=== PATIENT | female | born 1945 | race Caucasian/White ===

== ENCOUNTER 2017-05-02 10:01 | Outpatient (CLI) | payer MEDICARE, BC ==
--- NOTE | 2017-05-02 14:57 | MRI ---
MRI RIGHT SHOULDER WITHOUT CONTRAST: HISTORY: M25.511, right shoulder pain. COMPARISON: None. FINDINGS: Biceps tendon: There is moderate extraarticular biceps tenosynovitis. There is interstitial tear at the level of the bicipital groove with moderate intraarticular tendinosis. Glenoid labrum: There is degeneration of the superior labrum with fraying and abnormal fluid signal within the labral substance. Rotator cuff: There is extensive high-grade healing or healed partial tear of the supraspinatus tend on and probably nearly all the fibers. There is extensive scar in situ. Very few normal fibers are seen beyond the rotator cable. This is felt to be likely reflective of a healed near full-thickness tear in the tendon approximately a centimeter from the foot plate. There is moderate tendinosis of t he infraspinatus tendon. Muscles: The muscle bulk is maintained. Bones: Moderate degenerative disease, intraventricular joint. Type II acromion. Soft tissues: Moderate subacromial/subdeltoid bursal occlusion. The rotator interval appears unrema rkable without significant synovitis. IMPRESSION: 1. Moderate extraarticular biceps tenosynovitis with interstitial tearing with the proximal most fib ers of the intertrabecular groove. 2. Extensive fraying of the superior labrum without normal fluid within the substance of the labrum suggesting chronic tearing. 3. Evidence of a scarred near full-thickness tear of the supraspinatus tendon entire width approxima tely 1 cm from the footplate with bridging scarring tissue without retraction of the myotendinous anibal ction. The scar bridges extensively tendinotic fibers of the supraspinatus tendon. 4. Moderate subacromial/subdeltoid bursal effusion. 5. Moderate degenerative disease of acromioclavicular joint. 6. No significant atrophy of the muscles. POS: [facility]
== END 2017-05-02 10:02 | disposition home or self-care (01) ==
LOC: TBSIIMAG 10:01
PROVIDERS: ATTEND Orthopaedic Surgery
DX: M25.511 Pain in right shoulder (principal); M75.21 Bicipital tendinitis, right shoulder; M75.101 Unspecified rotator cuff tear or rupture of right shoulder, not specified as traumatic; M25.411 Effusion, right shoulder; M19.011 Primary osteoarthritis, right shoulder

== ENCOUNTER 2017-06-02 08:58 | Outpatient (CLI) | payer MEDICARE, BC ==
[2017-06-02 10:10] LABS: #Eosinphils 0.1 thou/uL (0.0-0.7); #Lymphocytes 1.6 thou/uL (1.20-3.40); #Monocytes 0.4 thou/uL (0.11-0.59); #Neutrophils 3.8 thou/uL (1.40-6.50); %Basophils 0.4 % (0.0-1.0); %Eosinophils 1.5 % (0.0-10.0); %Lymphocytes 26.4 % (21.0-51.0); Mean Platelet Volume 7.7 fL (7.4-10.4); Red Blood Cell (RBC) Count 4.62 mill/uL (4.20-5.40); White Blood Cell (WBC) Count 5.9 thou/uL (4.8-10.8)
[2017-06-02 10:35] LABS: Anion Gap 12 mmol/L (10-20); BUN (Urea Nitrogen) 11 mg/dL (9.8-20.1); Calc. Creatinine Clearance 0 mL/min (70-130); Calcium 9.8 mg/dL (7.8-10.44); Carbon Dioxide 29 mmol/L (23-31); Chloride 105 mmol/L (98-107); Estimated GFR-MDRD 76
--- NOTE | 2017-06-02 15:53 | EKG ---
Test Reason : Blood Pressure : / mmHG Vent. Rate : 067 BPM Atrial Rate : 067 BPM P-R Int : 170 ms QRS Dur : 082 ms QT Int : 390 ms P-R-T Axes : 050 051 047 degrees QTc Int : 412 ms Normal sinus rhythm Normal ECG Confirmed by SHAINA ESPINOZA ([id number]) on 06/02/2017 3:53:02 PM Referred By: IERO Confirmed By:SHAINA ESPINOZA
== END 2017-06-02 08:59 | disposition home or self-care (01) ==
LOC: LABBT 08:58
PROVIDERS: ATTEND Orthopaedic Surgery
DX: Z01.818 Encounter for other preprocedural examination (principal); M75.101 Unspecified rotator cuff tear or rupture of right shoulder, not specified as traumatic
CPT/HCPCS: 80048; 85025; 93005; 93010

== ENCOUNTER 2017-06-08 05:49 | Day surgery (SDC) | payer MEDICARE, BC ==
[2017-06-02 09:18] VITALS: BMI 29.0
[2017-06-08] MEDS ORDERED: CEFAZOLIN/Water 2 GM/20 ML SYRINGE ONE (06:06)
[2017-06-08] MEDS ORDERED: Fentanyl 100 MCG/2 ML VIAL ONE (06:30)
[2017-06-08] MEDS ORDERED: Ropivacaine 0.2% HCl/PF 20 ML ONE (06:30)
[2017-06-08] MEDS ORDERED: Midazolam HCl 2 mg/2 ml Vial ONE (06:30)
[2017-06-08] MEDS ORDERED: Bupivacaine/Epinephrine 0.25% 30 ML VIAL ONE (06:42)
[2017-06-08] MEDS ORDERED: Ondansetron HCl/PF 4 MG/2 ML Vial IVP PRN (07:05)
[2017-06-08] MEDS ORDERED: traMADol HCl 50 MG TAB PO PRN ×2 (07:05)
[2017-06-08] MEDS ORDERED: Promethazine HCl 25 MG/ML VIAL IM PRN (07:05)
[2017-06-08] MEDS ORDERED: Ketorolac Tromethamine 30 MG/ML VIAL IVP PRN (07:05)
[2017-06-08] MEDS ORDERED: Zolpidem Tartrate 5 MG TAB PO PRN (07:05)
[2017-06-08] MEDS ORDERED: Ropivacaine 0.2% 550 ML 550 ML NERVE BLCK SCH (07:05)
[2017-06-08] MEDS ORDERED: HYDROcodone/Acetaminophen 5/325 mg Tablet PO PRN ×2 (07:05)
[2017-06-08] MEDS ORDERED: Fentanyl 100 MCG/2 ML VIAL IV PRN (07:07)
[2017-06-08] MEDS ORDERED: Promethazine HCl 25 MG/ML VIAL ONE (09:49)
--- NOTE | 2017-06-08 10:50 | OP ---
DATE OF PROCEDURE: 06/08/2017 PREOPERATIVE DIAGNOSIS: Right shoulder rotator cuff tear and labral tear as well as biceps tendon in stability and tearing. POSTOPERATIVE DIAGNOSES: 1. Partial tear, supraspinatus tendon with no evidence of full thickness tear. 2. SLAP tear, degenerative in nature, as well as a tear of the superior aspect of the subscapularis, both leading to instability of the biceps. 3. 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 PROCEDURES: 1. Right shoulder arthroscopy with debridement and shaving of partial cuff tear, degenerative labral tear. 2. Open biceps tenodesis. SURGEON: Flo Bhatia M.D. STEWARD/STEWARDESS SECOND CLASS: Armando Eastman PA-C. BLOOD LOSS: Minimal. COMPLICATIONS: None. ANESTHESIA: She had general anesthetic. She also has a preoperative block. We did use an Arthrex 7 x 23 BioComposite Bio-Tenodesis screw. DISPOSITION: She did go to recovery room in stable condition. INDICATIONS: A 72-year-old female comes in complaining of right shoulder pain and discomfort that hearn s been not amenable to nonoperative treatment. At this time, she opted to have surgery. DESCRIPTION OF PROCEDURE: After all appropriate consent forms were explained and signed, she was lee ann en to the operating room and at this time was given a general anesthetic. Once anesthesia was approp riate, she was rolled into the left lateral decubitus position with all bony prominences well-padded. An axillary roll was placed underneath the left axilla and beanbag was inflated to hold in this pos ition. The arm was then suspended with 10 pounds in standard arthroscopic fashion after taking it th rough a full range of motion. At this time, the right shoulder and upper extremity are prepped and d raped in the standard surgical fashion. Bony anatomic landmarks were drawn out and subacromial space was infiltrated with Marcaine with epinephrine. Posterior portal was established and the scope was placed into the shoulder joint. Anterior working portal was then made using a needle localization te chnique and diagnostic arthroscopy commenced. Medially, we noted a tear of the superior aspect of tyson bscapularis leading to anterior biceps instability and irritation of the biceps tendon itself. There was significant amount of synovitis noted in the interval. There were no loose bodies in the axilla ry pouch. There was some grade 2 and 3 chondromalacia of both the central glenoid as well as the ant erior portion of the humeral head. The superior labrum was found to be completely degenerative and u nstable, also laying biceps instability. At this time, the rotator cuff was evaluated and supraspina tus portion of the cuff had a partial tear and the shaver was introduced and used to debride both par tial tear of the rotator cuff as well as the labrum circumferentially and the surface energy was then used to coagulate any brisk venous bleeding after the synovitic tissue had been resected. At this t garth, we then used a needle through which a stitch was placed into the biceps tendon and cut off the b iceps off its superior labral attachment using the arthroscopic scissors. We then debrided this area superiorly. At this time, the scope was removed and replaced into the subacromial space. The bursa l tissue was removed off the underlying cuff to expose the rotator cuff, it was evident where the par tial tear was noted, but no full thickness tear was noted. No significant bony decompression was per formed and the CA ligament was not taken down secondary to the underlying arthritic change. At this time, we removed the scope and drained the shoulder. We then used a 15 blade to make incision. Next , we replaced our stitch down through skin only. Bovie was used to coagulate any brisk venous bleedi ng. We sharply dissected through the deltoid fascia and then used finger to dissect in line with the deltoid fibers to get down to the underlying transverse humeral ligament. This was opened up and th e biceps tendon pulled out into the wound. All brisk venous bleeding was coagulated. Any adhesions in the transverse humeral ligament were then removed at this time to expose the tendon. We then sutu red and then cutoff the intraarticular portion. We then placed the guidepin and reamed over this wit h #7 and then placed a 7 x 23 BioComposite tenodesis screw in standard fashion. Stitches were tied o roxy top of this and then cut. We then thoroughly irrigated and dried. We let our deltoid close upon itself and we ran a Vicryl to close our deltoid fascia, 2-0 Vicryl and nylon stitches were then used to close all our incisions. At this time, bulky sterile dressing was applied. The patient was awak ened. She was taken to the recovery room in stable condition. All counts were correct at the end of the case. She received preoperative IV antibiotics.
[2017-06-08] MEDS ORDERED: Ondansetron HCl/PF 4 MG/2 ML Vial ONE (16:30)
[2017-06-08] MEDS ORDERED: Glycopyrrolate 0.2 MG/ML 5 ML SYRINGE ONE (16:30)
[2017-06-08] MEDS ORDERED: Propofol 200 MG/20 ML VIAL ONE (16:30)
[2017-06-08] MEDS ORDERED: Dexamethasone 20 MG/5 ML VIAL ONE (16:30)
[2017-06-08] MEDS ORDERED: ePHEDrine/0.9% NaCl/PF SYRINGE 50 mg/10 ml ONE (16:30)
[2017-06-08] MEDS ORDERED: Ropivacaine 0.5% HCl/PF (150 MG/30 ML VIAL) ONE (16:47)
== END 2017-06-08 12:05 | disposition home or self-care (01) ==
LOC: SDC 05:49
PROVIDERS: ATTEND Orthopaedic Surgery
PROC: 0RBJ4ZZ Excision of Right Shoulder Joint, Percutaneous Endoscopic Approach (ICD-10-PCS; principal; 2017-06-08)
PROC: 0LS30ZZ Reposition Right Upper Arm Tendon, Open Approach (ICD-10-PCS; 2017-06-08)
PROC: 0RHJ04Z Insertion of Internal Fixation Device into Right Shoulder Joint, Open Approach (ICD-10-PCS; 2017-06-08)
DX: M75.111 Incomplete rotator cuff tear or rupture of right shoulder, not specified as traumatic (principal); S43.431A Superior glenoid labrum lesion of right shoulder, initial encounter; M94.211 Chondromalacia, right shoulder; E78.5 Hyperlipidemia, unspecified; K21.9 Gastro-esophageal reflux disease without esophagitis; I34.0 Nonrheumatic mitral (valve) insufficiency; I35.0 Nonrheumatic aortic (valve) stenosis; Z86.010 Personal history of colon polyps; Z79.899 Other long term (current) drug therapy; Z88.8 Allergy status to other drugs, medicaments and biological substances; Z98.42 Cataract extraction status, left eye; Z98.41 Cataract extraction status, right eye; Z96.1 Presence of intraocular lens; Z98.51 Tubal ligation status; Z98.890 Other specified postprocedural states
CPT/HCPCS: 23430; 29823; 96374; A4306; C1713; J1100; J2250; J2405; J2550; J2704; J2795; J3010

== ENCOUNTER 2018-04-24 13:09 | Outpatient (CLI) | payer MEDICARE, BC | END 2018-04-24 13:10 | disposition home or self-care (01) | LOC: BICMAMMO 13:09 | PROVIDERS: ATTEND Family Medicine | DX: Z12.31 Encounter for screening mammogram for malignant neoplasm of breast (principal) | CPT/HCPCS: 77063; 77067 ==

== ENCOUNTER 2018-08-11 18:18 | Emergency (ER) | payer MEDICARE, BC ==
[~2018-08-11 18:18] MED LIST: ISOVUE-370 76%-LOCM 1 ML ONE
[2018-08-11 19:45] LABS: #Basophils 0.1 thou/uL (0.0-0.2); #Eosinphils 0.1 thou/uL (0.0-0.7); #Lymphocytes 1.8 thou/uL (1.20-3.40); #Monocytes 0.4 thou/uL (0.11-0.59); #Neutrophils 3.7 thou/uL (1.40-6.50); %Eosinophils 2.2 % (0.0-10.0); %Lymphocytes 28.7 % (21.0-51.0); %Neutrophils 61.1 % (42.0-75.0); Hemoglobin 14.2 g/dL (12.0-16.0); Mean Corpuscular HGB CONC 33.1 g/dL (32.0-36.0); Mean Corpuscular Hemoglobin 31.8 pg (27.0-31.0); Mean Platelet Volume 8.4 fL (7.4-10.4); Platelet Count 171 thou/uL (130-400); RBC Distribution Width 11.8 % (11.5-14.5); Red Blood Cell (RBC) Count 4.48 mill/uL (4.20-5.40); White Blood Cell (WBC) Count 6.1 thou/uL (4.8-10.8)
[2018-08-11 20:10] LABS: ALT (SGPT) 16 U/L (8-55); AST (SGOT) 20 U/L (5-34); Albumin 4.3 g/dL (3.4-4.8); Alkaline Phosphatase 94 U/L (40-150); Anion Gap 13 mmol/L (10-20); BUN (Urea Nitrogen) 9 mg/dL (9.8-20.1); Bilirubin, Total 1.1 mg/dL (0.2-1.2); CK (CPK) 175 U/L (29-168); Calc. Creatinine Clearance 0 mL/min (70-130); Calcium 9.4 mg/dL (7.8-10.44); Carbon Dioxide 27 mmol/L (23-31); Chloride 105 mmol/L (98-107); Estimated GFR-MDRD 61; Globulin 2.5 g/dL (2.4-3.5); Glucose 202 mg/dL (83-110); Potassium 4.3 mmol/L (3.5-5.1); Protein, Total 6.8 g/dL (6.0-8.3); Sodium 141 mmol/L (136-145)
[2018-08-11] MEDS ORDERED: Clindamycin/D5W 900 mg/50 ml Premix Bag ONE (21:19)
--- NOTE | 2018-08-11 22:36 | CT ---
CONTRAST ENHANCED FACE CT 08/11/18 HISTORY: Patient with right external auditory canal and ear infection. Contrast enhanced CT of the face is obtained. Mild right maxillary sinus mucosal thickening seen. The frontal and ethmoid sinuses are well aerated. Mild sphenoid sinus mucosal thickening seen. There is some soft tissue enhancement involving the right external auditory canal and right external ear. This may represent a focal area of cellulitis. No definite evidence of abscess seen. the right m astoid air cells and middle ear are unremarkable. IMPRESSION: No CT evidence of right external auditory canal and external ear abscess. Malignancy cannot be exclud ed. Correlate with clinical exam. POS: [facility]
[2018-08-11 22:54] LABS: Bilirubin Negative (Negative); Blood, Urine Negative (Negative); Clarity CLEAR (Clear); Glucose, Urine (Dipstick) Negative (Negative); Leukocyte Negative (Negative); Nitrite Negative (Negative); Protein, Urine (Dipstick) Negative (Neg-Trace)
[2018-08-11 22:57] LABS: Specific Gravity, Urine Greater than 1.060 (1.002-1.036)
== END 2018-08-11 23:07 | disposition home or self-care (01) ==
LOC: ERS 18:18
DX: A46 Erysipelas (principal); E78.5 Hyperlipidemia, unspecified; Z79.899 Other long term (current) drug therapy
CPT/HCPCS: 36415; 70487; 80053; 81003; 82550; 83605; 85025; 87040; 96365; J3490; Q9966

== ENCOUNTER 2019-04-26 08:46 | Outpatient (CLI) | payer MEDICARE, BC ==
--- NOTE | 2019-04-26 10:05 | MMO ---
Bilateral MAMMO Bilat Screen [facility]. CLINICAL HISTORY: Patient is 74 years old and is seen for screening. The patient has no family history of breast cancer. The patient has no personal history of cancer. VIEWS: The views performed were: bilateral craniocaudal with tomosynthesis and bilateral mediolateral oblique with tomosynthesis. FILMS COMPARED: The present examination has been compared to prior imaging studies performed at [facility] on 05/23/2014, 06/11/2015, 06/17/2016 and 04/24/2018. This study has been interpreted with the assistance of computer-aided detection. MAMMOGRAM FINDINGS: There are scattered fibroglandular densities. There are stable benign appearing calcifications seen in both breasts. There are no suspicious masses, suspicious calcifications, or new areas of architectural distortion. IMPRESSION: THERE IS NO MAMMOGRAPHIC EVIDENCE OF MALIGNANCY. A ROUTINE FOLLOW-UP MAMMOGRAM IN 1 YEAR IS RECOMMENDED. THE RESULTS OF THIS EXAM WERE SENT TO THE PATIENT. ACR BI-RADS Category 2 - Benign finding MAMMOGRAPHY NOTE: 1. A negative mammogram report should not delay a biopsy if a dominant of clinically suspicious mass is present. 2. Approximately 10% to 15% of breast cancers are not detected by mammography. 3. Adenosis and dense breasts may obscure an underlying neoplasm. Reported by: OBINNA TERRAZAS MD Electonically Signed: [id number]
== END 2019-04-26 08:47 | disposition home or self-care (01) ==
LOC: BICMAMMO 08:46
PROVIDERS: ATTEND Family Medicine
DX: Z12.31 Encounter for screening mammogram for malignant neoplasm of breast (principal)
CPT/HCPCS: 77063; 77067

== ENCOUNTER 2020-05-30 12:53 | Outpatient (CLI) | payer MEDICARE, BC ==
--- NOTE | 2020-05-30 13:26 | MMO ---
Bilateral MAMMO Bilat Screen [facility]. CLINICAL HISTORY: Patient is 75 years old and is seen for screening. The patient has no family history of breast cancer. The patient has no personal history of cancer. VIEWS: The views performed were: bilateral craniocaudal with tomosynthesis and bilateral mediolateral oblique with tomosynthesis. FILMS COMPARED: The present examination has been compared to prior imaging studies performed at [facility] on 06/11/2015, 06/17/2016, 04/24/2018 and 04/26/2019. This study has been interpreted with the assistance of computer-aided detection. MAMMOGRAM FINDINGS: There are scattered fibroglandular densities. There are stable benign appearing calcifications seen in both breasts. There are also vascular calcifications. There are no suspicious masses, suspicious calcifications, or new areas of architectural distortion. IMPRESSION: THERE IS NO MAMMOGRAPHIC EVIDENCE OF MALIGNANCY. A ROUTINE FOLLOW-UP MAMMOGRAM IN 1 YEAR IS RECOMMENDED. THE RESULTS OF THIS EXAM WERE SENT TO THE PATIENT. ACR BI-RADS Category 2 - Benign finding MAMMOGRAPHY NOTE: 1. A negative mammogram report should not delay a biopsy if a dominant of clinically suspicious mass is present. 2. Approximately 10% to 15% of breast cancers are not detected by mammography. 3. Adenosis and dense breasts may obscure an underlying neoplasm. Reported by: SOCO GUERRIER MD Electonically Signed: [id number]
== END 2020-05-30 12:54 | disposition home or self-care (01) ==
LOC: BICMAMMO 12:53
PROVIDERS: ATTEND Family Medicine
DX: Z12.31 Encounter for screening mammogram for malignant neoplasm of breast (principal)
CPT/HCPCS: 77063; 77067

== ENCOUNTER 2021-03-12 09:31 | Outpatient (CLI) | payer MEDICARE, BC | END 2021-03-12 09:32 | disposition home or self-care (01) | LOC: TBSIIMAG 09:31 | PROVIDERS: ATTEND Orthopaedic Surgery | DX: M48.061 Spinal stenosis, lumbar region without neurogenic claudication (principal); M47.816 Spondylosis without myelopathy or radiculopathy, lumbar region | CPT/HCPCS: 72148 ==

== ENCOUNTER 2021-06-18 10:39 | Outpatient (CLI) | payer MEDICARE, BC | END 2021-06-18 10:40 | disposition home or self-care (01) | LOC: BICMAMMO 10:39 | PROVIDERS: ATTEND Family Medicine | DX: Z12.31 Encounter for screening mammogram for malignant neoplasm of breast (principal) | CPT/HCPCS: 77063; 77067 ==

== ENCOUNTER 2022-07-02 12:37 | Outpatient (CLI) | payer MEDICARE, BC | END 2022-07-02 12:38 | disposition home or self-care (01) | LOC: BICMAMMO 12:37 | PROVIDERS: ATTEND Family Medicine | DX: Z12.31 Encounter for screening mammogram for malignant neoplasm of breast (principal) | CPT/HCPCS: 77063; 77067 ==

== ENCOUNTER 2022-09-27 10:16 | Outpatient (CLI) | payer MEDICARE, BC | END 2022-09-27 10:17 | disposition home or self-care (01) | LOC: TBSIIMAG 10:16 | PROVIDERS: ATTEND Orthopaedic Surgery Hand Surgery | DX: M48.02 Spinal stenosis, cervical region (principal); M47.813 Spondylosis without myelopathy or radiculopathy, cervicothoracic region | CPT/HCPCS: 72141 ==

== ENCOUNTER 2023-02-02 15:17 | Outpatient (CLI) | payer MEDICARE, BC | END 2023-02-02 15:18 | disposition home or self-care (01) | LOC: BICULT 15:17 | PROVIDERS: ATTEND Advanced Practice Midwife | DX: N95.0 Postmenopausal bleeding (principal) | CPT/HCPCS: 76856 ==

== ENCOUNTER 2023-07-27 11:10 | Outpatient (CLI) | payer MEDICARE, BC | END 2023-07-27 11:11 | disposition home or self-care (01) | LOC: BICMAMMO 11:10 | PROVIDERS: ATTEND Family Medicine | DX: Z12.31 Encounter for screening mammogram for malignant neoplasm of breast (principal) | CPT/HCPCS: 77063; 77067 ==

== ENCOUNTER 2023-08-23 07:58 | Day surgery (SDC) | payer MEDICARE, BC ==
[2023-08-18 11:09] VITALS: BMI 30.2
[2023-08-23] MEDS ORDERED: fentaNYL 50 mcg/mL 1 mL Vial ONE (09:09)
[2023-08-23] MEDS ORDERED: PROPOFOL 20 ML ONE (09:09)
[2023-08-23] MEDS ORDERED: Bupivacaine PF 0.5% 30 ML VIAL ONE (09:18)
[2023-08-23] MEDS ORDERED: Bacitracin Zinc Ointment 30 gm TUBE ONE (09:18)
[2023-08-23] MEDS ORDERED: Sodium Chloride 0.9% 100 ML ONE (09:59)
[2023-08-23] MEDS ORDERED: CEFAZOLIN 2 GM VIAL ONE (09:59)
[2023-08-23] MEDS ORDERED: Dexamethasone 4 mg/ml Vial ONE (10:16)
== END 2023-08-23 11:46 | disposition home or self-care (01) ==
LOC: SDC 07:58
PROVIDERS: ATTEND Orthopaedic Surgery Hand Surgery
PROC: 01N50ZZ Release Median Nerve, Open Approach (ICD-10-PCS; principal; 2023-08-23)
DX: G56.01 Carpal tunnel syndrome, right upper limb (principal); Z88.8 Allergy status to other drugs, medicaments and biological substances
CPT/HCPCS: 64721; A6223; J0665; J1100; J2704; J3010; J3490

== ENCOUNTER 2023-11-19 10:34 | Inpatient (IN) | payer MEDICARE, BC ==
[2023-11-19] MEDS ORDERED: Ketorolac Tromethamine 30 MG (1 mL) VIAL ONE (11:54)
[2023-11-19 14:12] LABS: #Basophils 0.03 10x3/uL (0.0-0.2); %Basophils 0.3 % (0.0-1.0); %Lymphocytes 14.2 % (21.0-51.0); %Monocytes 8.5 % (0.0-10.0); %Neutrophils 74.8 % (42.0-75.0); Hematocrit 38.1 % (36.0-47.0); Hemoglobin 12.7 g/dL (12.0-16.0); Mean Corpuscular HGB CONC 33.3 g/dL (32.0-36.0); Mean Corpuscular Hemoglobin 31.9 pg (27.0-31.0); Mean Corpuscular Volume 95.7 fL (78.0-98.0); Mean Platelet Volume 10.1 fL (7.4-10.4); Platelet Count 185 10x3/uL (130-400); RBC Distribution Width 12.3 % (11.5-14.5); Red Blood Cell (RBC) Count 3.98 mill/uL (4.20-5.40)
[2023-11-19] MEDS ORDERED: Acetaminophen 325 MG TAB PO PRN (14:25)
[2023-11-19] MEDS ORDERED: TETANUS, DIPHTHERIA TOX,ADULT (TDVAX) 0.5 ML VIAL IM ONE (14:25)
[2023-11-19] MEDS ORDERED: Ondansetron PF 4 MG/2 ML Vial IVP PRN (14:25)
[2023-11-19 14:26] LABS: ALT (SGPT) 15 U/L (8-55); AST (SGOT) 23 U/L (5-34); Alkaline Phosphatase 69 U/L (40-110); Anion Gap 18 mmol/L (10-20); BUN (Urea Nitrogen) 12 mg/dL (9.8-20.1); Bilirubin, Total 1.2 mg/dL (0.2-1.2); Calc. Creatinine Clearance 0 mL/min (70-130); Calcium 9.2 mg/dL (7.8-10.44); Carbon Dioxide 22 mmol/L (23-31); Chloride 103 mmol/L (98-107); Estimated GFR 56; Globulin 2.6 g/dL (2.4-3.5); Glucose 104 mg/dL (83-110); Protein, Total 6.6 g/dL (5.8-8.1); Sodium 138 mmol/L (136-145)
[2023-11-19] MEDS ORDERED: Boostrix 0.5 ML (Tdap) VIAL (>/=7 yrs of age) ONE (14:40)
[2023-11-19 16:25] VITALS: BMI 27.8
[2023-11-19] MEDS: Morphine 2 MG/ML VIAL SLOW IVP PRN (19:50)
[2023-11-19] MEDS: traMADol HCl 50 MG TAB PO PRN (19:52)
[2023-11-19] MEDS: Morphine 4 MG/ML VIAL SLOW IVP PRN (19:53)
[2023-11-20 05:47] LABS: #Basophils Less than 0.03 10x3/uL (0.0-0.2); %Basophils 0.3 % (0.0-1.0); %Eosinophils 6.2 % (0.0-10.0); %Lymphocytes 24.7 % (21.0-51.0); %Monocytes 10.4 % (0.0-10.0); %Neutrophils 58.1 % (42.0-75.0); Hemoglobin 10.9 g/dL (12.0-16.0); Mean Corpuscular HGB CONC 34.1 g/dL (32.0-36.0); Mean Corpuscular Hemoglobin 31.9 pg (27.0-31.0); Mean Corpuscular Volume 93.6 fL (78.0-98.0); Mean Platelet Volume 10.3 fL (7.4-10.4); Platelet Count 156 10x3/uL (130-400); RBC Distribution Width 12.2 % (11.5-14.5); Red Blood Cell (RBC) Count 3.42 mill/uL (4.20-5.40)
[2023-11-20] MEDS ORDERED: CEFAZOLIN 2 GM in Sodium Chloride 0.9% 100 ML IVPB SCH (06:00)
[2023-11-20 06:01] LABS: Anion Gap 12 mmol/L (10-20); BUN (Urea Nitrogen) 16 mg/dL (9.8-20.1); Calc. Creatinine Clearance 63 mL/min (70-130); Calcium 8.8 mg/dL (7.8-10.44); Carbon Dioxide 25 mmol/L (23-31); Chloride 104 mmol/L (98-107); Estimated GFR 76; Glucose 91 mg/dL (83-110); Potassium 4.6 mmol/L (3.5-5.1); Sodium 136 mmol/L (136-145)
[2023-11-20] MEDS ORDERED: CEFAZOLIN 2 GM VIAL ONE (10:09)
[2023-11-20] MEDS ORDERED: Sodium Chloride 0.9% 100 ML ONE (10:10)
[2023-11-20] MEDS ORDERED: Bupivacaine PF 0.5% 30 ML VIAL ONE (10:14)
[2023-11-20] MEDS ORDERED: Vancomycin 1 GM VIAL ONE (10:14)
[2023-11-20] MEDS ORDERED: EPINEPHrine 1 MG/ML VIAL ONE (10:14)
[2023-11-20] MEDS ORDERED: PROPOFOL 20 ML ONE (10:19)
[2023-11-20] MEDS ORDERED: Ondansetron PF 4 MG/2 ML Vial ONE (10:20)
[2023-11-20] MEDS ORDERED: Lidocaine 1% PF 5 ML VIAL ONE (10:20)
[2023-11-20] MEDS ORDERED: fentaNYL PF 100 MCG/2 ML SYRINGE ONE (10:54)
[2023-11-20] MEDS ORDERED: ePHEDrine Sulfate 50 MG/10 ML VIAL ONE (11:21)
[2023-11-20] MEDS ORDERED: [UNRECOGNIZED DRUG - REMARK] FS PRN (11:30)
[2023-11-20] MEDS: HYDROcodone/Acetaminophen 5/325 mg Tablet PO PRN ×2 (14:21→21:54)
[2023-11-20] MEDS: CEFAZOLIN 2 GM in Sodium Chloride 0.9% 100 ML IVPB SCH (17:25)
[2023-11-20] MEDS: Aspirin 81 mg Enteric Coated Tablet PO SCH (21:51)
[2023-11-21] MEDS ORDERED: Polyethylene Glycol 3350 17 GM Packet PO PRN (05:48)
[2023-11-21] MEDS: Enoxaparin 40 MG (0.4 mL) SYRINGE SC SCH (09:14)
[2023-11-21] MEDS: Senokot S 8.6-50 MG TAB PO SCH (09:15)
[2023-11-22] MEDS ORDERED: Polyethylene Glycol 3350 17 GM Packet PO SCH (05:30)
[2023-11-22] MEDS: Polyethylene Glycol 3350 17 GM Packet PO SCH (08:22)
[2023-11-22 11:43] VITALS: BP 137/77; TEMP 97.5
== END 2023-11-22 15:00 | disposition home or self-care (01) | DRG 482 ==
LOC: ERS 10:34 → SURG A 14:27
PROVIDERS: ADMIT Student in an Organized Health Care Education/Training Program; ATTEND Student in an Organized Health Care Education/Training Program
PROC: 0QS634Z Reposition Right Upper Femur with Internal Fixation Device, Percutaneous Approach (ICD-10-PCS; principal; 2023-11-20)
DX: S72.001A Fracture of unspecified part of neck of right femur, initial encounter for closed fracture (principal); I10 Essential (primary) hypertension; E78.5 Hyperlipidemia, unspecified; W19.XXXA Unspecified fall, initial encounter; Y93.89 Activity, other specified; Y92.89 Other specified places as the place of occurrence of the external cause; Z79.899 Other long term (current) drug therapy; Z90.710 Acquired absence of both cervix and uterus; Z98.51 Tubal ligation status
CPT/HCPCS: 36415; 71045; 80048; 80053; 85025; 90715; 93005; 96372; A6223; C1713; J0171; J0665; J1650; J1885; J2270; J2272; J2405; J2704; J3370; J3490